=== PATIENT | female | born 1945 | race Caucasian/White ===

== ENCOUNTER 2019-12-27 20:04 | Emergency (ER) | payer MEDICARE, OTHER ==
[2019-12-27 21:35] VITALS: BP 93/56; PULSE 73
--- NOTE | 2019-12-27 22:57 | EDM.PDOC ---
ED HPI GENERAL MEDICAL PROBLEM - General Chief Complaint: Gastrointestinal Problem Stated Complaint: CONSTAPATED Time Seen by Provider: 12/27/19 22:44 Source of Information: Reports: Patient History Limitations: Reports: No Limitations - History of Present Illness INITIAL COMMENTS - FREE TEXT/NARRATIVE: Patient is a 74-year-old female presenting to the emergency department with complaints of constipation. Last time she had a bowel movement was approximately 4 days ago. She has had problems with constipation in the past. States she takes MiraLAX as needed as well as prune juice. Her last dose of MiraLAX was on Monday. She has been using prune juice daily since then with little relief. States that she has been working throughout the day to have a bowel movement but has only gone a small amount and it was quite hard. She complains of some significant rectal pressure as well as leaking of liquid stool. She denies any abdominal pain, nausea, or vomiting. - Related Data Allergies Allergy/AdvReac Type Severity Reaction Status Date / Time Sulfa (Sulfonamide Allergy Rash Verified 12/27/19 21:45 Antibiotics) Home Meds: Home Meds Aspirin [Halfprin] 81 mg PO DAILY 08/09/14 [History] Levothyroxine 25 mcg PO DAILY 08/09/14 [History] Multivitamin [Multivitamins] 1 cap PO DAILY 08/09/14 [History] Spring-3 Fatty Acids [Fish Oil] 1 tab PO DAILY 08/09/14 [History] Simvastatin [Zocor] 20 mg PO DAILY 08/09/14 [History] Ubidecarenone [Co Q-10] 1 tab PO DAILY 08/09/14 [History] Levofloxacin [Levaquin] 250 mg PO Q24H #3 tablet 08/10/14 [Rx] Methotrexate 2.5 mg PO Q7D 12/27/19 [History] Past Medical History HEENT History: Reports: None Other Cardiovascular History: questionable heart murmur. 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 Neurological History: Reports: None Psychiatric History: Reports: None Endocrine/Metabolic History: Reports: None Hematologic History: Reports: None Immunologic History: Reports: Other (See Below) Other Immunologic History: rheumatoid arthritis Other Oncologic History: 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 ED EXAM, GI/ABD - Physical Exam Exam: See Below General Appearance: Alert, WD/WN, No Apparent Distress Respiratory/Chest: No Respiratory Distress, Lungs Clear, Normal Breath Sounds, No Accessory Muscle Use, Chest Non-Tender Cardiovascular: Normal Peripheral Pulses, Regular Rate, Rhythm, No Edema, No Gallop, No JVD, No Murmur, No Rub GI/Abdominal Exam: Normal Bowel Sounds, Soft, Non-Tender, No Organomegaly, No Distention, No Abnormal Bruit, No Mass, Pelvis Stable Neurological: Alert, Oriented, CN II-XII Intact, Normal Cognition, Normal Gait, Normal Reflexes, No Motor/Sensory Deficits Psychiatric: Normal Affect, Normal Mood Skin Exam: Warm, Dry, Intact, Normal Color, No Rash Course - Vital Signs Last Recorded V/S: Last Vital Signs Temp 98.1 F 12/27/19 21:31 Pulse 73 12/27/19 21:31 Resp 20 12/27/19 21:31 BP 93/56 L 12/27/19 21:31 Pulse Ox 100 12/27/19 21:31 - Orders/Labs/Meds Orders: Active Orders 24 hr Category Date Time Status Enema [RC] ASDIRECTED Care 12/27/19 22:50 Active Abdomen 1V Flat [CR] Stat Exams 12/27/19 22:49 Taken - Re-Assessments/Exams Free Text/Narrative Re-Assessment/Exam: 12/27/19 23:50 X-ray of the abdomen showed increased stool throughout the rectal vault and descending colon. Mineral oil enema was completed, however patient was still unable to go. She was manually disimpacted and was then able to have a large bowel movement. She is feels much better. Discussed that she should start taking Colace daily and increase her frequency of MiraLAX as needed until she is having bowel movements every day or every other day. Follow-up with her primary care provider as needed. Discharge instructions as documented. Departure - Departure Time of Disposition: 23:51 Disposition: Home, Self-Care 01 Condition: Good Clinical Impression: Constipation - Discharge Information *PRESCRIPTION DRUG MONITORING PROGRAM REVIEWED*: No *COPY OF PRESCRIPTION DRUG MONITORING REPORT IN PATIENT ADRIA: No Instructions: Constipation, Adult Referrals: Laura Soto MD [Primary Care Provider] - Forms: ED Department Discharge Additional Instructions: You were seen in the emergency department this evening for constipation. While in the ER, you received an enema and was manually disimpacted and you were able to move your bowels. Recommend that you begin taking a Colace stool softener daily. Also recommend that you increase your frequency at which you use MiraLAX until you achieve a regular bowel pattern of daily or every other day bowel movements. If you continue to have problems with your constipation, recommend follow-up with your primary care provider to establish a good bowel regimen. Return to the ER as needed. Sepsis Event Note (ED) - Evaluation Sepsis Screening Result: No Definite Risk - Focused Exam Vital Signs: Vital Signs Temp Pulse Resp BP Pulse Ox 12/27/19 21:31 98.1 F 73 20 93/56 L 100 - My Orders Last 24 Hours: My Active Orders 12/27/19 22:49 Abdomen 1V Flat [CR] Stat 12/27/19 22:50 Enema [RC] ASDIRECTED - Assessment/Plan Last 24 Hours: My Active Orders 12/27/19 22:49 Abdomen 1V Flat [CR] Stat 12/27/19 22:50 Enema [RC] ASDIRECTED
--- NOTE | 2020-01-22 10:46 | CR ---
PROCEDURE INFORMATION: Exam: XR Abdomen, 1 View Exam date and time: 12/27/2019 11:22 PM Age: 74 years old Clinical indication: Abdominal pain; Flank; Left upper quadrant (luq) TECHNIQUE: Imaging protocol: XR of the abdomen. Views: Frontal supine view of the abdomen. 1 View. COMPARISON: No relevant prior studies available. FINDINGS: Gastrointestinal tract: Non-specific/nonobstructive intestinal gas pattern. There is a moderate amount of colonic content identified. Organs: Patient is status post cholecystectomy. Bones/joints: Broad left lumbar scoliosis in the range of 10 degrees.There is mild endplate sclerosis and osteophyte formation identified throughout the lumbar segment. Mild diffuse facet disease is present. IMPRESSION: No acute findings. Thank you for allowing us to participate in the care of your patient. Dictated and Authenticated by: Guillermo Malik MD 01/20/2020 7:18 PM Central Time ([place] & [place]) [facility]
== END 2019-12-28 00:14 | disposition home or self-care (01) ==
LOC: JD.ED 20:04
DX: K59.00 Constipation, unspecified (principal); M06.9 Rheumatoid arthritis, unspecified; Z88.2 Allergy status to sulfonamides; Z79.82 Long term (current) use of aspirin; Z79.899 Other long term (current) drug therapy
CPT/HCPCS: 74018; 74018-26; 99282; 99283

== ENCOUNTER 2021-05-27 20:19 | Emergency (ER) | payer MEDICARE, OTHER ==
[2021-05-27 20:58] VITALS: BP 146/85; PULSE 51
== END 2021-05-27 22:25 | disposition home or self-care (01) ==
LOC: JD.ED 20:19
DX: K59.00 Constipation, unspecified (principal); Z88.2 Allergy status to sulfonamides; Z79.82 Long term (current) use of aspirin; Z79.899 Other long term (current) drug therapy
CPT/HCPCS: 74018; 74018-26; 99283; 99283-25

== ENCOUNTER 2022-04-23 21:30 | Emergency (ER) | payer MEDICARE, OTHER ==
[2022-04-23] MEDS ORDERED: Sodium Chloride 0.9% 10 ML Syringe FLUSH PRN (21:46)
[2022-04-23] MEDS ORDERED: Acetaminophen/HYDROcodone 325-5 MG Tab PO ONE (22:39)
[2022-04-23] MEDS ORDERED: Ondansetron 4 MG Tab.DIS PO ONE (22:40)
[2022-04-23] MEDS ORDERED: Potassium Chloride 20 MEQ Tab.ER PO ONE (22:42)
[2022-04-23] MEDS ORDERED: Ketorolac 30 MG/ML SDV IM STA (23:41)
[2022-04-23] MEDS ORDERED: Ketorolac 15 MG/ML SDV ONE (23:43)
[2022-04-24 00:12] VITALS: BP 167/86; PULSE 51
== END 2022-04-24 | disposition home or self-care (01) ==
LOC: JD.ED 21:30
DX: R07.89 Other chest pain (principal); M19.032 Primary osteoarthritis, left wrist; R73.9 Hyperglycemia, unspecified; E87.6 Hypokalemia; E78.00 Pure hypercholesterolemia, unspecified; E03.9 Hypothyroidism, unspecified; Z88.2 Allergy status to sulfonamides; Z79.82 Long term (current) use of aspirin; Z79.899 Other long term (current) drug therapy
CPT/HCPCS: 36415; 71045; 80053; 83735; 83880; 84484; 85025; 85610; 85730; 93005; 96372; 99285; A9270; J1885; J3490; 93010; 99284

== ENCOUNTER 2023-09-27 18:42 | Emergency (ER) | payer MEDICARE, OTHER ==
[2023-09-27] MEDS ORDERED: Sodium Chloride 0.9% 10 ML Syringe FLUSH PRN (18:59)
[2023-09-27 19:04] LABS: BASOPHILS PERCENT AUTO 0.6 % (0.0-1.0); EOSINOPHILS ABSOLUTE AUTO 0.2 K/mm3 (0.0-0.4); EOSINOPHILS PERCENT AUTO 2.7 % (0.0-6.0); HEMATOCRIT 35.1 % (37.0-47.0); HEMOGLOBIN 11.8 gm/dl (12.0-16.0); IMMATURE GRAN ABSOLUTE AUTO 0.04 K/mm3 (0.00-0.05); IMMATURE GRAN PERCENT AUTO 0.6 % (0.0-0.4); LYMPHOCYTES ABSOLUTE AUTO 1.7 K/mm3 (1.0-4.8); LYMPHOCYTES PERCENT AUTO 24.3 % (24.0-44.0); MEAN CORPUSCULAR HEMOGLOBIN 33.5 pg (28.0-32.0); MEAN CORPUSCULAR HGB CONC 33.6 g/dl (32.0-36.0); MEAN CORPUSCULAR VOLUME 99.7 fl (83.0-99.0); MEAN PLATELET VOLUME 9.6 fl (9.4-12.3); MONOCYTES ABSOLUTE AUTO 0.7 K/mm3 (0.0-0.8); MONOCYTES PERCENT AUTO 10.3 % (0.0-8.0); NEUTROPHILS ABSOLUTE AUTO 4.3 K/mm3 (1.8-7.7); NEUTROPHILS PERCENT AUTO 61.5 % (41.0-71.0); PLATELET COUNT,PLT 195 K/mm3 (150-400); RED BLOOD CELL COUNT 3.52 M/mm3 (4.10-5.30); WHITE BLOOD CELL COUNT,WBC 6.91 K/mm3 (3.9-11.3)
[2023-09-27 19:29] LABS: A/G RATIO 1.3 (1-2); ALANINE AMINOTRANSFERASE,ALT 22 U/L (14-59); ALBUMIN 3.5 g/dl (3.4-5.0); ALKALINE PHOSPHATASE 47 U/L (46-116); ANION GAP 8.9 (5-15); ASPARTATE AMNIOTRANSFERASE,AST 17 U/L (15-37); BILIRUBIN TOTAL 0.6 mg/dL (0.2-1.0); BLOOD UREA NITROGEN,BUN 11 mg/dL (7-18); CALCIUM 8.7 mg/dL (8.5-10.1); CARBON DIOXIDE,CO2 30 mEq/L (21-32); CHLORIDE,CL 104 mEq/L (98-107); CREATININE 1.1 mg/dL (0.55-1.02); EST CRCL DRUG DOSING (CG) 35.43 mL/min; ESTIMATED GFR 52 mL/min (>60); GLUCOSE RANDOM 116 mg/dL (70-99); POTASSIUM,K 3.9 mEq/L (3.5-5.1); PROTEIN TOTAL,TP 6.3 g/dl (6.4-8.2); SODIUM,NA 139 mEq/L (136-145); TROPONIN I HIGH SENSITIVITY < 4 pg/mL (<=51)
[2023-09-27 21:22] VITALS: BP 144/74; PULSE 56
== END 2023-09-27 21:03 | disposition home or self-care (01) ==
LOC: JD.ED 18:42
DX: R55 Syncope and collapse (principal); S00.03XA Contusion of scalp, initial encounter; E78.00 Pure hypercholesterolemia, unspecified; M19.90 Unspecified osteoarthritis, unspecified site; E03.9 Hypothyroidism, unspecified; Z90.49 Acquired absence of other specified parts of digestive tract; Z79.899 Other long term (current) drug therapy; Z79.82 Long term (current) use of aspirin; Z88.2 Allergy status to sulfonamides; X50.9XXA Other and unspecified overexertion or strenuous movements or postures, initial encounter
CPT/HCPCS: 36415; 70450; 70450-26; 80053; 84484; 85025; 93005; 99285

== ENCOUNTER 2023-11-09 14:46 | Emergency (ER) | payer MEDICARE, OTHER ==
[2023-11-09] MEDS ORDERED: Sodium Chloride 0.9% 10 ML Syringe FLUSH PRN ×2 (15:35→15:36)
[2023-11-09 16:06] LABS: BASOPHILS PERCENT AUTO 0.5 % (0.0-1.0); EOSINOPHILS ABSOLUTE AUTO 0.1 K/mm3 (0.0-0.4); EOSINOPHILS PERCENT AUTO 1.7 % (0.0-6.0); HEMATOCRIT 31.8 % (37.0-47.0); HEMOGLOBIN 10.7 gm/dl (12.0-16.0); IMMATURE GRAN ABSOLUTE AUTO 0.02 K/mm3 (0.00-0.05); IMMATURE GRAN PERCENT AUTO 0.3 % (0.0-0.4); LYMPHOCYTES ABSOLUTE AUTO 1.3 K/mm3 (1.0-4.8); LYMPHOCYTES PERCENT AUTO 16.9 % (24.0-44.0); MEAN CORPUSCULAR HEMOGLOBIN 32.9 pg (28.0-32.0); MEAN CORPUSCULAR HGB CONC 33.6 g/dl (32.0-36.0); MEAN CORPUSCULAR VOLUME 97.8 fl (83.0-99.0); MEAN PLATELET VOLUME 8.9 fl (9.4-12.3); MONOCYTES ABSOLUTE AUTO 1.1 K/mm3 (0.0-0.8); MONOCYTES PERCENT AUTO 13.7 % (0.0-8.0); NEUTROPHILS ABSOLUTE AUTO 5.2 K/mm3 (1.8-7.7); NEUTROPHILS PERCENT AUTO 66.9 % (41.0-71.0); PLATELET COUNT,PLT 288 K/mm3 (150-400); RED BLOOD CELL COUNT 3.25 M/mm3 (4.10-5.30); WHITE BLOOD CELL COUNT,WBC 7.69 K/mm3 (3.9-11.3)
[2023-11-09] MEDS ORDERED: Sodium Chloride 0.9% 100 ML IV SCH (16:15)
[2023-11-09 16:31] LABS: LACTIC ACID 0.7 mmol/L (0.4-2.0)
[2023-11-09 16:42] LABS: ALBUMIN 3.2 g/dl (3.4-5.0); ANION GAP 9.4 (5-15); BILIRUBIN TOTAL 0.5 mg/dL (0.2-1.0); BUN/CREATININE RATIO 13.8 (14-18); C-REACTIVE PROTEIN 5.66 mg/dL (<0.30); CREATININE 0.8 mg/dL (0.55-1.02); EST CRCL DRUG DOSING (CG) 55.13 mL/min; MAGNESIUM 2.2 mg/dL (1.8-2.4); POTASSIUM,K 3.4 mEq/L (3.5-5.1); PROTEIN TOTAL,TP 6.4 g/dl (6.4-8.2)
[2023-11-09 17:08] LABS: APPEARANCE,URINE CLEAR (Clear); BILIRUBIN,URINE NEGATIVE (Negative); COLOR,URINE YELLOW (Yellow); GLUCOSE,URINE NEGATIVE (Negative); KETONES,URINE NEGATIVE (Negative); LEUKOCYTE ESTERASE,URINE NEGATIVE (Negative); NITRITE,URINE NEGATIVE (Negative); OCCULT BLOOD,URINE TRACE-LYSED (Negative); PROTEIN,URINE NEGATIVE (Negative); UROBILINOGEN,URINE 0.2 (0.2-1.0)
[2023-11-09] MEDS: Iopamidol 755 Mg/ML 100 ML Bottle IVPUSH ONE (17:15)
[2023-11-09 17:31] LABS: BACTERIA,URINE FEW /hpf (FEW); MUCUS,URINE FEW /hpf (FEW); RBC,URINE 0-5 /hpf (0-5); SQUAMOUS EPITHELIAL CELLS,UR 0-5 /hpf (0-5); WBC,URINE 0-5 /hpf (0-5)
[2023-11-09] MEDS: Potassium Chloride 20 MEQ Tab.ER PO ONE (18:37)
[2023-11-09] MEDS: Sodium Chloride 0.9% 1,000 ML IV ONE (18:37)
[2023-11-09 18:40] VITALS: BP 152/75; PULSE 59
== END 2023-11-09 22:12 | disposition home or self-care (01) ==
LOC: JD.ED 14:46
DX: U07.1 COVID-19 (principal); I62.02 Nontraumatic subacute subdural hemorrhage; Z88.2 Allergy status to sulfonamides; Z79.82 Long term (current) use of aspirin; Z79.890 Hormone replacement therapy; Z79.899 Other long term (current) drug therapy; Z86.16 Personal history of COVID-19; Z90.49 Acquired absence of other specified parts of digestive tract
CPT/HCPCS: 36415; 70450; 70450-26; 70496; 70496-26; 70498; 70498-26; 71046; 71046-26; 80053; 81001; 82728; 83605; 83615; 83735; 84484; 85025; 85379; 86140; 93005; 96360; 99284-25; A9270-GY; J7030; Q9967; U0002